=== PATIENT | female | born 1960 | race Caucasian/White ===

== ENCOUNTER 2021-04-20 09:39 | Observation (INO) ==
[2021-04-20] MEDS ORDERED: 0.9 % Sodium Chloride 1,000 ML IVC ONE (10:09)
[2021-04-20 11:47] LABS: Acetaminophen 11 mcg/mL (10-20); Alanine Aminotransferase 44 Units/L (7-52); Albumin 4.3 g/dL (3.5-5.7); Albumin/Globulin Ratio 1.4 (1.1-2.2); Alkaline Phosphatase 163 Units/L (34-104); Aspartate Amino Transferase 32 Units/L (13-39); BUN/Creatinine Ratio 26 (6-26); Bilirubin,Indirect 0.3 mg/dL (0.0-1.0); Bilirubin,Total 0.3 mg/dL (0.3-1.0); Blood Urea Nitrogen 28 mg/dL (6-20); Calcium 9.2 mg/dL (8.6-10.3); Carbon Dioxide 22 mEq/L (23-29); Chloride 107 mEq/L (98-107); Ethanol < 10 mg/dL (Less than 10); Glucose 107 mg/dL (70-105); Osmolality,Calculated 284 (280-300); Potassium 4.3 mEq/L (3.5-5.1); Salicylate < 2.5 mg/dL (15.0-30.0); Sodium 134 mEq/L (136-145); Thyroid Stimulating Hormone 4.566 mcIU/mL (0.340-5.600); Total Protein 7.3 g/dL (6.4-8.9); eGFR For African Americans > 60 (> 60); eGFR For Non-African Americans 53 (> 60)
[2021-04-20 12:30] LABS: Basophils # 0.1 K/mcL (0.0-0.2); Basophils % 0.8 %; Eosinophils # 0.5 K/mcL (0.0-0.6); Eosinophils % 5.2 %; Hematocrit 31.9 % (35.3-44.9); Hemoglobin 9.8 g/dL (11.5-15.4); Immature Granulocytes % 0.4 % (0-4); Lymphocytes # 2.7 K/mcL (0.6-4.6); Lymphocytes % 26.5 %; Mean Corpuscular HGB Conc 30.7 g/dL (31.6-35.5); Mean Corpuscular Hemoglobin 28.3 pg (28.0-33.3); Mean Corpuscular Volume 92.2 fL (83.0-100.0); Mean Platelet Volume 9.9 fL (9.4-12.4); Monocytes # 1.1 K/mcL (0.0-1.3); Neutrophils # 5.7 K/mcL (1.6-8.9); Nucleated Red Blood Cells 0.2 /100 WBC (0); Platelet Count 221 K/mcL (140-400); Red Blood Count 3.46 M/mcL (3.82-4.97); Red Cell Distribution Width 13.1 % (11.5-14.5); Segmented Neutrophils % 56.1 %; White Blood Count 10.2 K/mcL (4.3-11.1)
[2021-04-20 14:08] LABS: Bacteria,Urine Few per hpf (None-Few); Bilirubin,Urine Negative (Negative); Blood,Urine Negative (Negative); Clarity,Urine Clear (Clear); Color,Urine Colorless (Yellow); Glucose,Urine (UA) Normal (Normal); Ketones,Urine Negative (Negative); Leukocyte Esterase,Urine Large (Negative); Nitrite,Urine Negative (Negative); PH,Urine 6.5 pH Units (5.0-8.0); Protein,Urine Negative (Neg-Trace); RBC,Urine 0-3 per hpf (0-3); Specific Gravity,Urine 1.008 (1.010-1.025); Squamous Epithelial Cell,Urine Few per hpf (None-Few); Urobilinogen,Urine Normal (Normal)
[2021-04-20 14:24] LABS: Amphetamine Screen,Urine Negative ng/mL (Cutoff=1000); Barbiturate Screen,Urine Negative ng/mL (Cutoff=200); Benzodiazepines Screen,Urine Negative ng/mL (Cutoff=200); Cannabinoid Screen,Urine Negative ng/mL (Cutoff = 50); Cocaine Screen,Urine Negative ng/mL (Cutoff= 300); Opiate Screen,Urine Negative ng/mL (Cutoff=300); Phencyclidine Screen,Urine Negative ng/mL (Cutoff=25)
[2021-04-20] MEDS ORDERED: Naloxone 0.4 MG/ML INJ IVP PRN (14:25)
[2021-04-20] MEDS: 0.9 % Sodium Chloride 1,000 ML IVC SCH (17:10)
[2021-04-20 18:18] LABS: Acetaminophen < 10 mcg/mL (10-20); Alanine Aminotransferase 46 Units/L (7-52); Albumin 4.3 g/dL (3.5-5.7); Albumin/Globulin Ratio 1.5 (1.1-2.2); Alkaline Phosphatase 166 Units/L (34-104); Aspartate Amino Transferase 30 Units/L (13-39); Bilirubin,Indirect 0.3 mg/dL (0.0-1.0); Bilirubin,Total 0.3 mg/dL (0.3-1.0); Globulin 2.9 g/dL (2.4-3.5); Sodium 136 mEq/L (136-145); Total Protein 7.2 g/dL (6.4-8.9)
[2021-04-20] MEDS: QUEtiapine Fumarate 25 MG TABLET PO SCH (20:30)
[2021-04-21] MEDS: 0.9 % Sodium Chloride 1,000 ML IVC SCH (00:04)
[2021-04-21 01:39] LABS: Hematocrit 28.6 % (35.3-44.9); Hemoglobin 9.3 g/dL (11.5-15.4); Mean Corpuscular HGB Conc 32.5 g/dL (31.6-35.5); Mean Corpuscular Hemoglobin 28.8 pg (28.0-33.3); Mean Corpuscular Volume 88.5 fL (83.0-100.0); Mean Platelet Volume 9.9 fL (9.4-12.4); Platelet Count 228 K/mcL (140-400); Red Blood Count 3.23 M/mcL (3.82-4.97)
[2021-04-21 02:00] LABS: BUN/Creatinine Ratio 25 (6-26); Blood Urea Nitrogen 19 mg/dL (6-20); Calcium 8.5 mg/dL (8.6-10.3); Carbon Dioxide 20 mEq/L (23-29); Chloride 113 mEq/L (98-107); Glucose 100 mg/dL (70-105); Magnesium 2.2 mg/dL (1.6-2.6); Osmolality,Calculated 284 (280-300); Potassium 3.8 mEq/L (3.5-5.1); Sodium 136 mEq/L (136-145); eGFR For African Americans > 60 (> 60); eGFR For Non-African Americans > 60 (> 60)
[2021-04-21 02:15] LABS: % Iron Saturation 49 % (15-50); Iron 146 mcg/dL (50-170); Transferrin 214 mg/dL (203-362)
[2021-04-21 02:18] LABS: Ferritin 160 ng/mL (10-120)
[2021-04-21] MEDS: *HR* Enoxaparin 30 MG/0.3 ML SYRINGE SQ SCH (05:24)
[2021-04-21] MEDS: Ondansetron 4 MG/2 ML VIAL IVP PRN ×2 (09:04→20:19)
[2021-04-21] MEDS: Divalproex (12 HR) 250 MG TABLET PO SCH (20:11)
[2021-04-21] MEDS: QUEtiapine Fumarate 25 MG TABLET PO SCH (20:11)
[2021-04-21] MEDS: Acetaminophen 325 MG TABLET PO PRN (22:37)
[2021-04-22] MEDS: *HR* Enoxaparin 30 MG/0.3 ML SYRINGE SQ SCH (05:00)
[2021-04-22 07:33] VITALS: BP 110/67
[2021-04-22] MEDS: Divalproex (12 HR) 250 MG TABLET PO SCH (07:50)
[2021-04-22] MEDS: Acetaminophen 325 MG TABLET PO PRN (07:52)
== END 2021-04-22 11:07 | disposition home or self-care (01) ==
LOC: 3BNU 09:39 → EMEROOARM 09:39 → 3BNU 14:32
PROVIDERS: ADMIT Internal Medicine; ATTEND Internal Medicine

== ENCOUNTER 2021-10-19 08:18 | Observation (INO) ==
[2021-10-19] MEDS ORDERED: 0.9 % Sodium Chloride 1,000 ML IVC ONE (08:34)
[2021-10-19 08:46] LABS: Basophils # 0.1 K/mcL (0.0-0.2); Basophils % 0.8 %; Eosinophils # 0.3 K/mcL (0.0-0.6); Eosinophils % 4.3 %; Hematocrit 36.7 % (35.3-44.9); Hemoglobin 12.4 g/dL (11.5-15.4); Immature Granulocytes % 0.3 % (0-4); Lymphocytes % 49.4 %; Mean Corpuscular HGB Conc 33.8 g/dL (31.6-35.5); Mean Corpuscular Hemoglobin 29.8 pg (28.0-33.3); Mean Corpuscular Volume 88.2 fL (83.0-100.0); Mean Platelet Volume 9.8 fL (9.4-12.4); Monocytes # 0.9 K/mcL (0.0-1.3); Monocytes % 14.4 %; Neutrophils # 1.9 K/mcL (1.6-8.9); Platelet Count 250 K/mcL (140-400); Red Blood Count 4.16 M/mcL (3.82-4.97); Red Cell Distribution Width 12.9 % (11.5-14.5); Segmented Neutrophils % 30.8 %; White Blood Count 6.1 K/mcL (4.3-11.1)
[2021-10-19 08:52] LABS: Prothrombin Time 11.6 Seconds (9.4-12.1)
[2021-10-19 09:06] LABS: BUN/Creatinine Ratio 17 (6-26); Blood Urea Nitrogen 15 mg/dL (6-20); Calcium 9.7 mg/dL (8.6-10.3); Carbon Dioxide 27 mEq/L (23-29); Chloride 94 mEq/L (98-107); Glucose 110 mg/dL (70-105); Osmolality,Calculated 271 (280-300); Sodium 130 mEq/L (136-145); eGFR For African Americans > 60 (> 60); eGFR For Non-African Americans > 60 (> 60)
[2021-10-19 09:07] LABS: Troponin I < 0.03 ng/mL (< 0.04)
[2021-10-19] MEDS ORDERED: Ondansetron 4 MG/2 ML VIAL IVP PRN (10:11)
[2021-10-19] MEDS ORDERED: Perflutren Lipid Microsphere 1.3 ML in 0.9 % Sodium Chloride 8.7 ML IVP PRN (10:13)
[2021-10-19] MEDS: Acetaminophen 325 MG TABLET PO PRN (17:16)
[2021-10-19] MEDS: Gabapentin 400 MG CAPSULE PO SCH ×2 (17:16→20:10)
[2021-10-19] MEDS: Baclofen 10 MG TABLET PO SCH (20:10)
[2021-10-20 03:21] LABS: Hematocrit 33.1 % (35.3-44.9); Hemoglobin 11.4 g/dL (11.5-15.4); Mean Corpuscular HGB Conc 34.4 g/dL (31.6-35.5); Mean Corpuscular Hemoglobin 30.3 pg (28.0-33.3); Platelet Count 240 K/mcL (140-400); Red Blood Count 3.76 M/mcL (3.82-4.97); Red Cell Distribution Width 12.9 % (11.5-14.5); White Blood Count 6.3 K/mcL (4.3-11.1)
[2021-10-20 03:40] LABS: BUN/Creatinine Ratio 24 (6-26); Blood Urea Nitrogen 18 mg/dL (6-20); Calcium 9.2 mg/dL (8.6-10.3); Carbon Dioxide 25 mEq/L (23-29); Chloride 97 mEq/L (98-107); Glucose 92 mg/dL (70-105); Osmolality,Calculated 270 (280-300); Sodium 129 mEq/L (136-145); eGFR For African Americans > 60 (> 60); eGFR For Non-African Americans > 60 (> 60)
[2021-10-20] MEDS: Baclofen 10 MG TABLET PO SCH ×2 (09:20→21:25)
[2021-10-20] MEDS: Gabapentin 400 MG CAPSULE PO SCH ×3 (09:20→21:25)
[2021-10-20] MEDS: Acetaminophen 325 MG TABLET PO PRN ×2 (09:24→21:50)
[2021-10-20] MEDS: Benzonatate 100 MG CAPSULE PO PRN (23:39)
[2021-10-21] MEDS ORDERED: Melatonin 3 MG TABLET PO PRN (00:24)
[2021-10-21 04:52] LABS: Basophils # 0.1 K/mcL (0.0-0.2); Basophils % 0.8 %; Eosinophils # 0.2 K/mcL (0.0-0.6); Immature Granulocytes % 0.3 % (0-4); Lymphocytes # 3.3 K/mcL (0.6-4.6); Lymphocytes % 46.1 %; Mean Corpuscular HGB Conc 33.3 g/dL (31.6-35.5); Mean Corpuscular Hemoglobin 30.1 pg (28.0-33.3); Mean Corpuscular Volume 90.2 fL (83.0-100.0); Mean Platelet Volume 9.8 fL (9.4-12.4); Monocytes # 0.8 K/mcL (0.0-1.3); Monocytes % 10.8 %; Neutrophils # 2.8 K/mcL (1.6-8.9); Platelet Count 249 K/mcL (140-400); Red Blood Count 3.99 M/mcL (3.82-4.97); Red Cell Distribution Width 12.8 % (11.5-14.5); White Blood Count 7.3 K/mcL (4.3-11.1)
[2021-10-21 05:08] LABS: BUN/Creatinine Ratio 23 (6-26); Blood Urea Nitrogen 18 mg/dL (6-20); Calcium 9.6 mg/dL (8.6-10.3); Carbon Dioxide 26 mEq/L (23-29); Chloride 95 mEq/L (98-107); Glucose 95 mg/dL (70-105); Osmolality,Calculated 272 (280-300); Potassium 4.1 mEq/L (3.5-5.1); Sodium 130 mEq/L (136-145); eGFR For African Americans > 60 (> 60); eGFR For Non-African Americans > 60 (> 60)
[2021-10-21 07:21] VITALS: BP 116/73; PULSE 64; TEMP 97.6; O2SAT 97
[2021-10-21] MEDS: Gabapentin 400 MG CAPSULE PO SCH (09:08)
[2021-10-21] MEDS: Baclofen 10 MG TABLET PO SCH (09:08)
[2021-10-21] MEDS: Benzonatate 100 MG CAPSULE PO PRN (09:14)
== END 2021-10-21 10:14 | disposition home or self-care (01) ==
LOC: EMEROOARM 08:18 → 2ANU 08:18 → SUATTDRO 15:20 → 2ANU 15:59
PROVIDERS: ADMIT Internal Medicine; ATTEND Internal Medicine